=== PATIENT | male | born 1970 | race Caucasian/White ===

== ENCOUNTER 2016-12-06 21:15 | Emergency (ER) | payer BC ==
[2016-12-06 21:34] VITALS: BP 162/82
--- NOTE | 2016-12-06 22:19 | EDM.PDOC ---
ED HPI Trauma - General Chief Complaint: Upper Extremity Injury/Pain Stated Complaint: BROKE KNUCKLE Time Seen by Provider: 12/06/16 21:40 Source: Reports: Patient History Limitations: Reports: No limitations - History of Present Illness INITIAL COMMENTS - FREE TEXT/NARRATIVE: right hand pain; this is a 45 year old male present to ER for evaluation of hand. He reports was moving furniture, when the end of the couch fell on his hand. no other injury. hand is painful and swollen. Occurred When: just prior to arrival Occurred Where: home Method of Injury: direct blow Severity: moderate Pain/Injury Location: Reports: upper extremity, right (hand) Consciousness: Reports: no loss of consciousness Associated Symptoms: Reports: denies other symptoms Allergies/ADRs: Allergies No Known Allergies Allergy (Verified 12/06/16 21:28) Home Medications: Ambulatory Orders NK [No Known Home Meds] 10/25/13 [Confirmed 12/06/16] Past Medical History - Past Health History Medical/Surgical History: Denies Medical/Surgical History Other Gastrointestinal History: Umbilical hernia repair Musculoskeletal History: Reports: Back pain, chronic - Infectious Disease History Infectious Disease History: Reports: Chicken pox - Past Surgical History GI Surgical History: Reports: Hernia repair/other Musculoskeletal Surgical History: Reports: Other (see below) Other Musculoskeletal Surgeries/Procedures:: Previous injury to multiple fingers of left hand. Social & Family History - Family History Family Medical History: Noncontributory - Tobacco Use Smoking Status *Q: Current Every Day Smoker Years of Tobacco use: 25 Packs/Tins Daily: 1 Used Tobacco, but Quit: No Second Hand Smoke Exposure: Yes - Caffeine Use Caffeine Use: Reports: Coffee, Soda - Alcohol Use Days Per Week of Alcohol Use: 0 - Recreational Drug Use Recreational Drug Use: No Recreational Drug Type: Reports: Marijuana/Hashish Review of Systems - Review of Systems Review Of Systems: See Below Constitutional: Reports: no symptoms Musculoskeletal: Reports: hand pain Skin: Reports: no symptoms Neurological: Reports: No Symptoms Psychiatric: Reports: no symptoms Trauma Exam - Physical Exam Exam: See Below Exam Limited By: No limitations General Appearance: Reports: alert, WD/WN, mild distress Head: Reports: atraumatic, normocephalic Extremities: Reports: bony-point tenderness, pain with movement, other (right hand, 5th metacarpal with pain and edema. unable to close hand. pulse intact) ED TRAUMA EXTREMITY PROCEDURES - Splinting Right 5th Digit Pre-procedure NV status: normal Post-procedure NV status: normal Splint material: aluminum-foam Splint design: posterior Applied & form fitted by: provider Provider post-splint application NV check: NV status normal, good position Complications: Yes Course - Vital Signs Last Recorded V/S: Last Vital Signs Temp 37.2 C 12/06/16 21:34 Pulse 95 12/06/16 21:34 Resp 16 12/06/16 21:34 BP 162/82 H 12/06/16 21:34 Pulse Ox 98 12/06/16 21:34 - Orders/Labs/Meds Orders: Active Orders 24 hr Category Date Time Status Hand Comp Min 3V Rt [CR] Stat Exams 12/06/16 21:47 Taken - Radiology Interpretation Free Text/Narrative:: xray; impacted distal 5th metacarpal fracture. splint applied referral to Orthopedic on 12/07/16 Departure - Departure Time of Disposition: 22:33 Disposition: Home, Self-Care 01 Condition: good Clinical Impression: Fracture of metacarpal bone Qualifiers: Encounter type: initial encounter Metacarpal bone: fifth Metacarpal location: unspecified portion of metacarpal Fracture alignment: displaced Laterality: right Instructions: Metacarpal Fracture, [id number] Referrals: PCP,None [Primary Care Provider] - Forms: ED Department Discharge Care Plan Goals: fracture/broken 5th Metacarpal; impacted -keep in splint til evaluated by Orthopedics -ice x 2 days , keep above the level of hear to prevent swelling -may take tylenol or motrin for pain -Insty med; Hydrocodone 5-325mg 1-2 tabs every 4 to 6 hours as needed for pain #[address] Akin Burrows, Orthopedic Surgeon for evaluation on Saturday no work slip given to patient return to clinic or er if not improved or symptoms worsen. - Problem List & Annotations (1) Fracture of metacarpal bone SNOMED Code(s): 811367648 Code(s): S62.309A - UNSP FRACTURE OF UNSP METACARPAL BONE, INIT FOR CLOS FX Status: Acute Qualifiers: Encounter type: initial encounter Metacarpal bone: fifth Metacarpal location: unspecified portion of metacarpal Fracture alignment: displaced Laterality: right - Problem List Review Problem List Initiated/Reviewed/Updated: Yes - My Orders Last 24 Hours: My Active Orders 12/06/16 21:47 Hand Comp Min 3V Rt [CR] Stat - Assessment/Plan Last 24 Hours: My Active Orders 12/06/16 21:47 Hand Comp Min 3V Rt [CR] Stat Plan: fracture/broken 5th Metacarpal; impacted -xray reviewed with patient -keep in splint til evaluated by Orthopedics -ice x 2 days , keep above the level of hear to prevent swelling -may take tylenol or motrin for pain -Insty med; Hydrocodone 5-325mg 1-2 tabs every 4 to 6 hours as needed for pain #[address] Akin Burrows, Orthopedic Surgeon for evaluation on Saturday no work slip given to patient return to clinic or er if not improved or symptoms worsen.
--- NOTE | 2016-12-07 09:21 | CR ---
Fracture of the fifth metacarpal neck with anterior angulation. Osteopenia. Hypertrophic change IP j oints.
== END 2016-12-06 22:33 | disposition home or self-care (01) ==
LOC: JP.ED 21:15
DX: S62.396A Other fracture of fifth metacarpal bone, right hand, initial encounter for closed fracture (principal); F17.210 Nicotine dependence, cigarettes, uncomplicated; W20.8XXA Other cause of strike by thrown, projected or falling object, initial encounter; Y92.009 Unspecified place in unspecified non-institutional (private) residence as the place of occurrence of the external cause
CPT/HCPCS: 73130-26-RT; 73130-RT; 99284

== ENCOUNTER 2017-02-27 04:24 | Emergency (ER) | payer BC ==
[2017-02-27 04:46] VITALS: BP 147/90
--- NOTE | 2017-02-27 04:59 | EDM.PDOC ---
ED HPI GENERAL MEDICAL PROBLEM - General Chief Complaint: Chest Pain Stated Complaint: CHEST PAINS Time Seen by Provider: 02/27/17 04:40 Source of Information: Reports: Patient, RN Notes Reviewed History Limitations: Reports: No Limitations - History of Present Illness INITIAL COMMENTS - FREE TEXT/NARRATIVE: 46-year-old gentleman presents emergency department with a complaint of chest pain, he states the chest pain started about an hour and half prior is probably left-sided chest with radiation to the jaw he was nauseated and did not feel short of breath there was no diaphoresis he has no significant family history but does smoke tobacco products about 1 pack per day, he does currently admit to being under a lot of stress Chest Pain Score (Numeric/FACES): 4 - Related Data Allergies Allergy/AdvReac Type Severity Reaction Status Date / Time No Known Allergies Allergy Verified 02/27/17 04:37 Home Meds: Home Meds NK [No Known Home Meds] 10/25/13 [History] Past Medical History Gastrointestinal History: Reports: GERD Other Gastrointestinal History: Umbilical hernia repair Musculoskeletal History: Reports: Back Pain, Chronic Psychiatric History: Reports: Anxiety, Depression - Infectious Disease History Infectious Disease History: Reports: Chicken Pox - Past Surgical History GI Surgical History: Reports: Hernia Repair/Other Social & Family History - Family History Family Medical History: Noncontributory - Tobacco Use Smoking Status *Q: Current Every Day Smoker Years of Tobacco use: 20 Packs/Tins Daily: 1 Used Tobacco, but Quit: No Second Hand Smoke Exposure: Yes - Caffeine Use Caffeine Use: Reports: Coffee - Alcohol Use Days Per Week of Alcohol Use: 0 - Recreational Drug Use Recreational Drug Use: No Recreational Drug Type: Reports: Marijuana/Hashish ED ROS GENERAL - Review of Systems Review Of Systems: See Below Constitutional: Reports: No Symptoms HEENT: Reports: No Symptoms Respiratory: Denies: Shortness of Breath Cardiovascular: Reports: Chest Pain. Denies: Dyspnea on Exertion GI/Abdominal: Reports: Nausea : Reports: No Symptoms ED EXAM, GENERAL - Physical Exam Exam: See Below Exam Limited By: No Limitations General Appearance: Alert, WD/WN, No Apparent Distress Eye Exam: Bilateral Eye: Normal Inspection Ears: Normal External Exam, Normal Canal, Hearing Grossly Normal, Normal TMs Nose: Normal Inspection, Normal Mucosa, No Blood Head: Atraumatic, Normocephalic Neck: Normal Inspection, Supple, Non-Tender, Full Range of Motion Respiratory/Chest: No Respiratory Distress, Lungs Clear, Normal Breath Sounds, No Accessory Muscle Use Cardiovascular: Regular Rate, Rhythm, No Murmur GI/Abdominal: Soft, Non-Tender Extremities: Normal Inspection, No Pedal Edema Course - Vital Signs Last Recorded V/S: Last Vital Signs Temp 96.6 F 02/27/17 04:44 Pulse 100 02/27/17 04:45 Resp 18 02/27/17 04:45 BP 147/90 H 02/27/17 04:45 Pulse Ox 100 02/27/17 04:45 Departure - Departure Time of Disposition: 04:58 Disposition: Against Medical Advice 07 Condition: undetermined Clinical Impression: Chest pain Qualifiers: Chest pain type: unspecified Qualified Code(s): R07.9 - Chest pain, unspecified Forms: ED Department Discharge
== END 2017-02-27 04:59 | disposition left against medical advice (07) ==
LOC: JP.ED 04:24
DX: R07.9 Chest pain, unspecified (principal); F17.210 Nicotine dependence, cigarettes, uncomplicated; Z98.890 Other specified postprocedural states
CPT/HCPCS: 93005; 99285-25